=== PATIENT | male | born 1995 | race Caucasian/White ===

== ENCOUNTER 2020-09-04 18:24 | Emergency (ER) | payer BC ==
[2020-09-04] MEDS ORDERED: Alum Hydrox/Mag Hydrox/Simeth 15 ML, Lidocaine 2% 15 ML PO ONE ×2 (18:35)
[2020-09-04] MEDS ORDERED: Sodium Chloride 0.9% 10 ML Syringe FLUSH PRN (18:35)
--- NOTE | 2020-09-04 19:18 | EDM.PDOC ---
ED HPI GENERAL MEDICAL PROBLEM - General Chief Complaint: Abdominal Pain Stated Complaint: STOMACH PAIN Time Seen by Provider: 09/04/20 18:44 Source of Information: Reports: Patient History Limitations: Reports: No Limitations - History of Present Illness INITIAL COMMENTS - FREE TEXT/NARRATIVE: Vladislav is a 25-year-old male from [place] who presents to the ED for evaluation of worsening epigastric pain. Patient has a history of a gastric sleeve that was performed in [place]. He has been having epigastric issues for about the last 6 months, however, the usually resolve after a couple of hours. Today the patient had onset of symptoms around 1:00 this afternoon that have been persistent and not improving. The patient did not eat lunch but rather ate breakfast earlier today. He has not been trying to overeat the gastric band. He states he had three quarters of his stomach removed during that surgery. He denies any nausea or vomiting. He did have 1 bowel movement today but typically he states he has 2-3 a day. The patient is in the area working on the [employer]. He denies any heavy lifting or straining. He denies any trauma to the area. He has not had any fever, chills, loss of taste or smell, cough or shortness of breath, hematemesis, hematochezia, or melena. Upper Abdomen Pain Score (Numeric/FACES): 6 - Related Data Allergies Allergy/AdvReac Type Severity Reaction Status Date / Time cefprozil [From Cefzil] Allergy Hives Verified 09/04/20 18:47 promethazine [From Phenergan] Allergy Hives Verified 09/04/20 18:47 sulfamethoxazole Allergy Hives Verified 09/04/20 18:47 [From Bactrim] trimethoprim [From Bactrim] Allergy Hives Verified 09/04/20 18:47 Home Meds: Home Meds NK [No Known Home Meds] 09/04/20 [History] Past Medical History HEENT History: Reports: Impaired Vision Cardiovascular History: Reports: High Cholesterol Musculoskeletal History: Reports: Fracture Other Musculoskeletal History: fx arm Endocrine/Metabolic History: Reports: Obesity/BMI 30+ - Past Surgical History GI Surgical History: Reports: Hernia Repair/Other, Other (See Below) Other GI Surgeries/Procedures: gastric sleve May 2019. Hiatial hernia repair 2018 Musculoskeletal Surgical History: Reports: Other (See Below) Other Musculoskeletal Surgeries/Procedures:: r ankle surgery Social & Family History - Tobacco Use Tobacco Use Status *Q: Never Tobacco User Second Hand Smoke Exposure: No - Caffeine Use Caffeine Use: Reports: Coffee, Soda - Alcohol Use Days Per Week of Alcohol Use: 2 Number of Drinks Per Day: 4 Total Drinks Per Week: 8 - Recreational Drug Use Recreational Drug Use: No ED ROS GENERAL - Review of Systems Review Of Systems: See Below Constitutional: Reports: No Symptoms HEENT: Reports: No Symptoms Respiratory: Reports: No Symptoms Cardiovascular: Reports: No Symptoms Endocrine: Reports: No Symptoms GI/Abdominal: Reports: Abdominal Pain (Epigastric). Denies: Black Stool, Bloody Stool, Diarrhea, Decreased Appetite, Difficulty Swallowing, Distension, Flatus, Hematemesis, Hematochezia, Melena, Nausea, Vomiting : Reports: No Symptoms Musculoskeletal: Reports: No Symptoms Skin: Reports: No Symptoms Neurological: Reports: No Symptoms Psychiatric: Reports: No Symptoms Hematologic/Lymphatic: Reports: No Symptoms Immunologic: Reports: No Symptoms ED EXAM, GI/ABD - Physical Exam Exam: See Below Exam Limited By: No Limitations General Appearance: Alert, Mild Distress Eyes: Bilateral: EOMI Throat/Mouth: Normal Inspection, Normal Oropharynx, Normal Voice, No Airway Compromise Head: Atraumatic, Normocephalic Neck: Normal Inspection, Supple, Non-Tender, Full Range of Motion Respiratory/Chest: No Respiratory Distress, Lungs Clear, Normal Breath Sounds Cardiovascular: Normal Peripheral Pulses, Regular Rate, Rhythm, No Murmur GI/Abdominal Exam: Distended (Tympany to percussion in the upper abdomen.), Guarding (In the right upper quadrant epigastric region and left upper quadrant), Tender (Upper abdomen), Abnormal Bowel Sounds (Diminished bowel sounds). No: Rigid, Rebound, Hernia, Hepatomegaly, Splenomegaly Extremities: Normal Inspection, Normal Range of Motion Neurological: Alert, Oriented, Normal Cognition, No Motor/Sensory Deficits Psychiatric: Normal Affect, Normal Mood Skin Exam: Warm, Dry, Intact, Normal Color Lymphatic: No Adenopathy Course - Vital Signs Last Recorded V/S: Last Vital Signs Temp 36.8 C 09/04/20 18:48 Pulse 86 09/04/20 18:48 Resp 16 09/04/20 18:48 BP 140/76 09/04/20 18:48 Pulse Ox 98 09/04/20 18:48 - Orders/Labs/Meds Orders: Active Orders 24 hr Category Date Time Status Abdomen Pelvis w Cont [CT] Stat Exams 09/04/20 18:35 Taken Iopamidol [Isovue-300 (61%)] Med 09/04/20 19:30 Active 100 ml IV . DIRECTED Sodium Chloride 0.9% [Normal Saline] 80 ml Med 09/04/20 19:30 Active IV ASDIRECTED Sodium Chloride 0.9% [Saline Flush] Med 09/04/20 18:35 Active 10 ml FLUSH ASDIRECTED PRN Saline Lock Insert [OM.PC] Routine Oth 09/04/20 18:35 Ordered Medication Orders Sodium Chloride (Normal Saline) 80 mls @ 3 mls/sec IV ASDIRECTED LONNY Last Admin: 09/04/20 19:56 Dose: 3 mls/sec Documented by: LONI Iopamidol (Isovue-300 (61%)) 100 ml IV . DIRECTED LONNY Last Admin: 09/04/20 19:56 Dose: 100 ml Documented by: LONI Sodium Chloride (Saline Flush) 10 ml FLUSH ASDIRECTED PRN PRN Reason: Keep Vein Open Last Admin: 09/04/20 19:56 Dose: 10 ml Documented by: LONI Labs: Laboratory Tests 09/04/20 09/04/20 Range/Units 18:58 18:58 WBC 10.7 (4.5-11.0) K/uL RBC 5.75 (4.30-5.90) M/uL Hgb 16.9 H (12.0-15.0) g/dL Hct 49.6 (40.0-54.0) % MCV 86 (80-98) fL MCH 29 (27-31) pg MCHC 34 (32-36) % Plt Count 270 (150-400) K/uL Neut % (Auto) 82 H (36-66) % Lymph % (Auto) 10 L (24-44) % [place] % (Auto) 8 H (2-6) % Eos % (Auto) 0 L (2-4) % Baso % (Auto) 0 (0-1) % Sodium 140 (140-148) mmol/L Potassium 4.2 (3.6-5.2) mmol/L Chloride 103 (100-108) mmol/L Carbon Dioxide 27 (21-32) mmol/L Anion Gap 10.3 (5.0-14.0) mmol/L BUN 12 (7-18) mg/dL Creatinine 0.9 (0.8-1.3) mg/dL Est Cr Clr Drug Dosing 140.11 mL/min Estimated GFR (MDRD) > 60 (>60) Glucose 105 (74-106) mg/dL Calcium 9.0 (8.5-10.1) mg/dL Total Bilirubin 1.1 H (0.2-1.0) mg/dL AST 173 H (15-37) U/L ALT 136 H (12-78) U/L Alkaline Phosphatase 88 (46-116) U/L Total Protein 7.1 (6.4-8.2) g/dL Albumin 3.9 (3.4-5.0) g/dL Globulin 3.2 (2.3-3.5) g/dL Albumin/Globulin Ratio 1.2 (1.2-2.2) Lipase 103 (73-393) U/L Meds: Medications Generic Name Dose Route Start Last Admin Trade Name Freq PRN Reason Stop Dose Admin Sodium Chloride 80 mls @ 3 mls/sec 09/04/20 19:30 09/04/20 19:56 Normal Saline IV 3 mls/sec ASDIRECTED LONNY Administration Iopamidol 100 ml 09/04/20 19:30 09/04/20 19:56 Isovue-300 (61%) IV 100 ml . DIRECTED LONNY Administration Sodium Chloride 10 ml 09/04/20 18:35 09/04/20 19:56 Saline Flush FLUSH 10 ml ASDIRECTED PRN Administration Keep Vein Open Discontinued Medications Generic Name Dose Route Start Last Admin Trade Name Freq PRN Reason Stop Dose Admin Al Hydroxide/Mg Hydroxide 15 0 ml 09/04/20 18:35 09/04/20 19:01 ml/ Lidocaine HCl 15 ml PO 09/04/20 18:36 30 ml ONETIME ONE Administration - Re-Assessments/Exams Free Text/Narrative Re-Assessment/Exam: 09/04/20 20:41 I reviewed the patient's labs which show normal CBC but elevation in his transaminases and bilirubin at 1.1. Patient has normal lipase reducing likelihood of acute pancreatitis. A CT of the abdomen and pelvis shows a normal liver, gallbladder, kidneys, pancreas, and intact gastric sleeve. There are no acute findings to account for his abdominal pain other than a copious amount of colonic stool and flatus. I suspect that this likely is the culprit. We discussed management of this including increasing fluid intake and the use of a simethicone-based medication like Gas-X, Heidy, or Di-Gel. At this time, there is nothing else to offer and patient is suitable for discharge in satisfactory condition. Departure - Departure Time of Disposition: 20:42 Disposition: Home, Self-Care 01 Condition: Good Clinical Impression: Epigastric abdominal pain, S/P gastroplasty, Excessive flatus Constipation Qualifiers: Constipation type: unspecified constipation type Qualified Code(s): K59.00 - Constipation, unspecified - Discharge Information *PRESCRIPTION DRUG MONITORING PROGRAM REVIEWED*: Not Applicable *COPY OF PRESCRIPTION DRUG MONITORING REPORT IN PATIENT BRIDGER: Not Applicable Instructions: Constipation, Adult, Abdominal Bloating Referrals: PCP,None [Primary Care Provider] - Forms: ED Department Discharge Care Plan Goals: I would recommend picking up either Maalox, Gaviscon, Di-Gel, or Gas-X to help break up the excessive flatus throughout the colon. You will need to increase your fluid intake as it does appear that you have some degree of constipation at this time. The remainder of your work-up was unremarkable with the exception of elevation of your liver enzymes which could either be due to alcohol or medication. There was no evidence in your work-up of any gallbladder disease including gallstones to account for the elevation of these levels. Sepsis Event Note (ED) - Evaluation Sepsis Screening Result: No Definite Risk - Focused Exam Vital Signs: Vital Signs Temp Pulse Resp BP Pulse Ox 09/04/20 18:48 36.8 C 86 16 140/76 98 - Problem List & Annotations (1) Constipation SNOMED Code(s): 01113257 Code(s): K59.00 - CONSTIPATION, UNSPECIFIED Status: Acute Priority: Medium Current Visit: Yes Qualifiers: Constipation type: unspecified constipation type Qualified Code(s): K59.00 - Constipation, unspecified (2) Epigastric abdominal pain SNOMED Code(s): 27326460 Code(s): R10.13 - EPIGASTRIC PAIN Status: Acute Priority: High Current Visit: Yes (3) Excessive flatus SNOMED Code(s): 47518267 Code(s): R14.3 - FLATULENCE Status: Acute Priority: Medium Current Visit: Yes (4) S/P gastroplasty SNOMED Code(s): 862986029, 962954781 Code(s): Z98.890 - OTHER SPECIFIED POSTPROCEDURAL STATES Status: Chronic Priority: High Current Visit: Yes - Problem List Review Problem List Initiated/Reviewed/Updated: Yes - My Orders Last 24 Hours: My Active Orders 09/04/20 18:35 Abdomen Pelvis w Cont [CT] Stat Sodium Chloride 0.9% [Saline Flush] 10 ml FLUSH ASDIRECTED PRN Saline Lock Insert [OM.PC] Routine 09/04/20 19:30 Iopamidol [Isovue-300 (61%)] 100 ml IV . DIRECTED Sodium Chloride 0.9% [Normal Saline] 80 ml IV ASDIRECTED - Assessment/Plan Last 24 Hours: My Active Orders 09/04/20 18:35 Abdomen Pelvis w Cont [CT] Stat Sodium Chloride 0.9% [Saline Flush] 10 ml FLUSH ASDIRECTED PRN Saline Lock Insert [OM.PC] Routine 09/04/20 19:30 Iopamidol [Isovue-300 (61%)] 100 ml IV . DIRECTED Sodium Chloride 0.9% [Normal Saline] 80 ml IV ASDIRECTED
[2020-09-04] MEDS ORDERED: Iopamidol 612 MG/ML 100 ML Bottle IV SCH (19:30)
[2020-09-04] MEDS ORDERED: Sodium Chloride 0.9% 80 ML IV SCH (19:30)
--- NOTE | 2020-09-04 20:24 | CRLCT ---
Indication: epigastric pain Technique: Postcontrast CT abdomen and pelvis. 100 cc Isovue-300 intravenous contrast. Please note that all CT scans at this facility use dose modulation, iterative reconstruction, and/or weight-based dosing when appropriate to reduce radiation dose to as low as reasonably achievable. Comparison: No comparison Findings: Lung bases are clear. Normal liver, spleen, pancreas, adrenal glands and gallbladder. Normal kidneys and ureters. Postoperative changes of gastric sleeve. No bowel obstruction or inflammatory change. No evidence of enteritis. Appendix normal. No suspicious adenopathy. Bladder normal. Prostate mildly prominent. Prostate calcifications. Normal osseous structures. Impression: No acute intra-abdominal or intrapelvic pathology. The gastric sleeve appears intact without obstruction or inflammatory change. Please note that all CT scans at this facility use dose modulation, iterative reconstruction, and/or weight-based dosing when appropriate to reduce radiation dose to as low as reasonably achievable. Dictated by Alexander Ervin MD @ Sep 04 2020 8:18PM Signed by Dr. Alexander Ervin @ Sep 04 2020 8:23PM
== END 2020-09-04 22:03 | disposition home or self-care (01) ==
LOC: JP.ED 18:24
DX: K59.00 Constipation, unspecified (principal); R14.3 Flatulence; Z98.84 Bariatric surgery status; Z88.1 Allergy status to other antibiotic agents; Z88.2 Allergy status to sulfonamides; E66.9 Obesity, unspecified; Z68.36 Body mass index [BMI] 36.0-36.9, adult
CPT/HCPCS: 36415; 74177; 80053; 83690; 85025; 99284; A9270; Q9967